=== PATIENT | male | born 1960 | race Caucasian/White ===

== ENCOUNTER → 2017-11-18 | Outpatient (CLI) | payer OTHER ==
[~2017-11-18] MED LIST: ASPRIN; ATR80PT PO; DUCOLAX; HYDR7GEL RC; LISI-362 PO; METO25TA93 PO; OXYC-865 PO; POLY17PO25 PO; PRUNE JUICE
== END ==
LOC: LAB 06:58
PROVIDERS: ATTEND Family Medicine
DX: E78.5 Hyperlipidemia, unspecified (principal); E11.65 Type 2 diabetes mellitus with hyperglycemia; I10 Essential (primary) hypertension
CPT/HCPCS: 82043; 83036

== ENCOUNTER → 2017-11-18 | Outpatient (REF) | DX: Z02.9 Encounter for administrative examinations, unspecified (principal) ==

== ENCOUNTER 2017-11-26 09:51 | Outpatient (RCR) | payer OTHER ==
--- NOTE | 2017-11-27 17:18 | Medical Nutrition Therapy ---
Nutrition Anthropometrics Weight (Pounds): 252 Sudheer Nutrition Score: Sudheer Nutrition Risk Score: Dietary Referral Nutrition Risk Factors: Nutrition Risk Comment: Nutrition/Food History Breakfast: 4 oz bagel, omlet, paredes Lunch: lefover + chips Dinner: meat, 1c starch, veg Snacks: almonds, cheese Nutritional Education Nutrition Education Topic: Diabetic Nutrition Learning Readiness: Interested Teaching Methods: Discussion, Handout Response to Teaching: Verbalize understanding Teaching Recipient: Patient Nutrition Counseling: Late entry for 11/26: Pt states new dx of diabetes but admits that A1C was over 7 last year. Pt did [place] diet lost to 235# and A1C was then 6.3. Pt states has slipped back into bad eating habits and wt is now up to 252 and with A1C of 8.3. Pt states has some neuropathy in feet and frequent urination. Discussed glycemic response to CHO. Discussed plate method, CHO counting. Pt states was successful with [place] diet and was interested in trying it again. Reviewed a regular Red diet and also provided modified Red which allows 30gm CHO/meal which may give him some flexability and help him transition to healthy eating habit when wt goal reached. Recommend trying diet for 2 months then transition to plate method. Pt set up behavioural goal and support plan. Pt agreed to class on living with diabetes but refused all other classes at this time. Nutrition Monitoring & Eval Nutritional Goals Comment: Goals:Wt loss to 235#/4monthby_ Follow Red diet or modified Red diet allowing 30gm CHO/meal for 2-3 months Transition to lifestlye changes that allow 60gm CHO/meal Exercise 3-5X/week - [address] Patient Assessment Time: 60 minutes Nutritional Comment: Provided 60 minute diabetes education focusing on nutrition, behavioural goal and support plan Copies To Copies to: DONALD LANCE BETH November 27, 2017 17:18
== END 2017-12-25 13:18 | disposition home or self-care (01) ==
LOC: DIET 09:51
PROVIDERS: ATTEND Family Medicine
DX: Z71.3 Dietary counseling and surveillance (principal); E11.65 Type 2 diabetes mellitus with hyperglycemia; G62.9 Polyneuropathy, unspecified; R39.15 Urgency of urination
CPT/HCPCS: G0108 ×2

== ENCOUNTER → 2018-03-20 | Outpatient (CLI) | payer OTHER ==
[2018-03-20 07:55] LABS: LDL CHOLESTEROL 66 mg/dl
== END ==
LOC: LAB 07:10
PROVIDERS: ATTEND Family Medicine
DX: I10 Essential (primary) hypertension (principal); E78.5 Hyperlipidemia, unspecified; E11.65 Type 2 diabetes mellitus with hyperglycemia
CPT/HCPCS: 36415; 82040; 82043; 82247; 82310; 82374; 82435; 82465; 82565; 82947; 83036; 83718; 84075; 84132; 84155; 84295; 84450; 84460; 84478; 84520

== ENCOUNTER → 2018-06-09 | Outpatient (REF) ==
[2018-06-09 08:11] LABS: LDL CHOLESTEROL 51 mg/dl
== END ==
DX: Z02.9 Encounter for administrative examinations, unspecified (principal)

== ENCOUNTER → 2018-06-09 | Outpatient (CLI) | payer OTHER | LOC: LAB 07:00 | PROVIDERS: ATTEND Family Medicine | DX: Z00.00 Encounter for general adult medical examination without abnormal findings (principal) | CPT/HCPCS: 82043; 83036; 84153 ==

== ENCOUNTER → 2018-11-24 | Outpatient (CLI) | payer OTHER ==
[2018-11-24 08:25] LABS: LDL CHOLESTEROL 79 mg/dl
== END ==
LOC: LAB 07:16
PROVIDERS: ATTEND Family Medicine
DX: I10 Essential (primary) hypertension (principal); E78.5 Hyperlipidemia, unspecified; E11.65 Type 2 diabetes mellitus with hyperglycemia
CPT/HCPCS: 36415; 82040; 82043; 82247; 82310; 82374; 82435; 82465; 82565; 82947; 83036; 83718; 84075; 84132; 84155; 84295; 84450; 84460; 84478; 84520

== ENCOUNTER → 2018-11-28 | Outpatient (CLI) | payer OTHER ==
[~2018-11-28] MED LIST changes: +IOPAMIDOL 76% 150 ML INFUS BTL 150 ML ONE
--- NOTE | 2018-11-28 15:11 | RADIOLOGY IMAGING REPORT ---
FAC[place] [facility] [place] NAME: Michele Montoya : 1960 MR: [id number] V: [id number] EXAM DATE: ORDERING PHYSICIAN: DONALD LANCE TECHNOLOGIST: Location: [facility] - [place] Patient: Michele Montoya : 1960 Visit/Account:[id number] Date of Sevice: 11/28/2018 CT ABDOMEN PELVIS W/ CON HISTORY: Left-sided abdomen pain TECHNIQUE: Following administration of IV contrast contiguous axial images acquired through the abdom en/pelvis. Coronal and sagittal reformatting also performed.Dose Lowering Technique One of the following dose optimization techniques was utilized in the performance of this exam: Autom ated exposure control; adjustment of the mA and/or kV according to the patient's size; or use of an i terative reconstruction technique. Specific details can be referenced in the facility's radiology C T exam operational policy. CONTRAST: 75 mL Isovue-[id number] COMPARISON: None. FINDINGS: Visualized lung bases: Coronary artery stents are in place Hepatobiliary: There is hepatic steatosis. There is an area of focal fatty infiltration adjacent to the falciform ligament Spleen: Negative. Adrenals: Negative. Pancreas: There Is a tiny punctate calcification in the head the pancreas Kidneys ureters or bladder: Negative. Genitalia: Negative. GI: In the mid descending colon is a focal area of bowel wall thickening with infiltrative changes seen i n the pericolonic fat and thickening of the left lateral conal fascia. This finding is consistent wi th acute diverticulitis. There is no evidence of a peridiverticular abscess or perforation. Extensi ve diverticulosis is present in the sigmoid colon. There is a focal area of thickening in the third portion of the duodenum Vessels/spaces/nodes: There are extensive vascular calcifications in the abdominal aorta and branch vessels. There is ectasia of the infrarenal abdominal aorta Bones/soft tissues: There spondylotic changes of the thoracolumbar spine Additional findings: None pertinent. IMPRESSION: Findings are consistent with acute diverticulitis in the mid descending colon without evidence of foc al perforation or peridiverticular abscess Incidental note is a focal area of thickening in the third portion of the duodenum Extensive vascular calcination occasions throughout the abdomen and pelvis Hepatic steatosis Report Dictated By: Dyan Christopher MD at 11/28/2018 3:00 PM Report E-Signed By: Dyan Christopher MD at 11/28/2018 3:07 PM AMAURYN:HUY
== END ==
LOC: CT 11:22
PROVIDERS: ATTEND Family Medicine
DX: K76.0 Fatty (change of) liver, not elsewhere classified (principal); I77.89 Other specified disorders of arteries and arterioles
CPT/HCPCS: 74177; Q9967